=== PATIENT | female | born 1990 | race Caucasian/White ===

== ENCOUNTER 2020-09-24 15:18 | Emergency (ER) | payer BC, SELFPAY ==
[2020-09-24 15:27] VITALS: BP 123/68; PULSE 90; RESP 16; TEMP 36.5; O2SAT 98
--- NOTE | 2020-09-24 15:47 | ED.URI ---
HPI - URI/Sore Throat General Chief Complaint: Upper Respiratory Infection Stated Complaint: sore throat/runny nose/ear pain Time Seen by Provider: 09/24/20 15:29 Source: patient and RN notes reviewed Mode of arrival: ambulatory Limitations: no limitations History of Present Illness HPI Narrative: Patient presents today complaining of a sore throat upon waking up this morning with fatigue and runny nose. Denies fever, cough, congestion, ear pain. Currently rates her sore throat 7/10 and has been using cough drops without relief. States her stepchildren just got back from camp where they had similar symptoms for 5 days, but are now feeling better. MD elicited complaint: sore throat Related Data Home Medications Medication Instructions Recorded Confirmed No Home Medications 09/24/20 09/24/20 Allergies Allergy/AdvReac Type Severity Reaction Status Date / Time No Known Allergies Allergy NONE Unverified 09/24/20 15:29 Review of Systems Review of Systems: Narrative: CONSTITUTIONAL: Denies body aches, fever, chills, or sweats.+ Fatigue EYES: Denies visual changes, redness, or discharge. ENT: Denies congestion, or otalgia. + Rhinorrhea, sore throat CARDIOVASCULAR: Denies chest pain, palpitations, or edema. RESPIRATORY: Denies cough or dyspnea. GASTROINTESTINAL: Denies abdominal pain, nausea, vomiting, or diarrhea. GENITOURINARY: Denies dysuria or hematuria. SKIN: Denies rash, itching, or wounds. MUSCULOSKELETAL: Denies back pain, joint pain, or myalgia. NEUROLOGIC: Denies headache, numbness, tingling, or weakness. PSYCH: Denies depression or anxiety. PMFSH Comments At time of signature, I have reviewed and agree with nursing past medical, surgical, social and family history unless otherwise noted. Please see nursing chart for further information. There is no relevant family history pertinent to the presenting complaint Exam Narrative: Exam Narrative: GENERAL: Well-appearing, well-nourished, and in no acute distress. HEAD: Normocephalic, atraumatic. EYES: EOMI. No redness or drainage. Conjunctivae normal. ENT: Mucous membranes pink and moist. Nares clear. No rhinorrhea. TMs normal bilaterally. Throat mildly erythematous without edema or exudate. Uvula midline. NECK: Normal AROM. Supple. No lymphadenopathy. CHEST: No respiratory distress. Clear to auscultation. HEART: Regular rate and rhythm. No murmur appreciated. Normal peripheral pulses. EXTREMITIES: Normal range of motion. No edema. SKIN: Warm, dry, no rash. Capillary refill normal. Normal skin turgor. NEURO: No focal deficits. Alert and oriented x3. Gait steady. PSYCH: Normal affect. No signs of depression or anxiety. Course Vital Signs Vital signs: Vital Signs Temperature 97.7 F 09/24/20 15:27 Pulse Rate 90 09/24/20 15:27 Respiratory Rate 16 09/24/20 15:27 Blood Pressure 123/68 09/24/20 15:27 Pulse Oximetry 98 09/24/20 15:27 Temperature 97.7 F 09/24/20 15:27 Pulse Rate 90 09/24/20 15:27 Respiratory Rate 16 09/24/20 15:27 Blood Pressure 123/68 09/24/20 15:27 Pulse Oximetry 98 09/24/20 15:27 Reviewed. Pt has been instructed to follow up with her PCP regarding her elevated blood pressure today. MDM - URI/Sore Throat Differential Diagnosis Differential diagnosis: Likely upper respiratory infection, otitis media, sinusitis, viral infection, pharyngitis and other (Strep throat, tonsillitis) Lab Data Attestation: I reviewed the patient's lab results. Labs: Strep Screen Presumptive Negative *(Reference Range: Negative)* Critical Care Time Critical Care Time Critical Care Time: No Discharge Plan Discharge Clinical Impression: Acute viral pharyngitis Patient Disposition: Home, Self-Care Condition: Stable Instructions: Pharyngitis (ED) Additional Instructions: Your rapid strep swab was negative today at [facility]. You will be notified
== END 2020-09-24 15:54 | disposition home or self-care (01) ==
PROVIDERS: Emergency Provider Nurse Practitioner; PCP Family Medicine Sports Medicine
DX: J02.8 Acute pharyngitis due to other specified organisms (principal); R12 Heartburn
CPT/HCPCS: 87081; 87880; 99213; G0463

== ENCOUNTER 2020-11-16 18:44 | Emergency (ER) | payer BC, SELFPAY ==
--- NOTE | ~2020-11-16 | XR_ITS ---
EXAMINATION: XR chest 2V DATE: 11/16/2020 19:19 INDICATION: Left breast pain. TECHNIQUE: PA and lateral views of the chest were obtained. COMPARISON: Chest radiograph dated 03/11/2018 FINDINGS: The lungs remain clear with no focal airspace opacities, pulmonary edema, pleural effusion or pneumot horax. The cardiomediastinal silhouette is normal. Visualized bones and soft tissues are unremarkable . IMPRESSION: 1. No acute cardiopulmonary disease. Reviewed, dictated and finalized at location A.
[2020-11-16 18:53] VITALS: BP 125/86; PULSE 113; RESP 16; TEMP 36.7; O2SAT 98
--- NOTE | 2020-11-16 18:56 | ED.SKABFB ---
HPI - Skin/Abscess/Foreign Bdy General Chief complaint: Skin/Abscess/Foreign Body Stated complaint: lt breast pain/fatigue Time Seen by Provider: 11/16/20 18:56 Source: patient and RN notes reviewed History of Present Illness HPI narrative: Patient is a 30-year-old female who presents the urgent care with complaints of left breast pain and fatigue. Patient states she is trying to get however her test were negative. Patient states that she does not have normal periods and is following up with her PHARMACY SERVICES REPRESENTATIVE regarding her breast pain and menstrual cycles on Thursday. Patient states that she did call their office regarding her breast pain this morning and they told her to come on Thursday and if her pain got any worse that she can go to the emergency room. Patient denies of any rash of the breast. Denies of any history of breast issues or cystic breast tissue. Patient denies of any fevers. Patient states that she has been googling and thinks that she has inflammatory breast cancer . Patient is very anxious. Patient also reports of grabbing the back of her bed frame and stretching out her left shoulder approximately 50 times a day and does have some anterior muscle tenderness to the left shoulder/upper chest. Patient states that is chronic for her and nothing new. Patient denies of any use of [id number] medication for her current complaints. No acute distress noted. Patient aware of the plan of care. Some parts of this dictation were generated by voice recognition software and may contain typographical and/or grammatical inaccuracies. Related Data Home Medications Medication Instructions Recorded Confirmed No Home Medications 09/24/20 11/16/20 Allergies Allergy/AdvReac Type Severity Reaction Status Date / Time No Known Allergies Allergy NONE Unverified 11/16/20 18:50 Review of Systems Review of Systems: CONSTITUTIONAL: Denies fever, chills, or sweats. EYES: Denies visual changes, redness, or discharge. ENT: Denies rhinorrhea, congestion, sore throat, or otalgia. CARDIOVASCULAR: Denies chest pain, palpitations, or edema. RESPIRATORY: Denies cough or dyspnea. GASTROINTESTINAL: Denies abdominal pain, nausea, vomiting, or diarrhea. GENITOURINARY: Denies dysuria or hematuria. Reports of left breast pain radiating into the nipple SKIN: Denies rash or itching. MUSCULOSKELETAL: Denies back pain, joint pain, or myalgia. NEUROLOGIC: Denies headache, numbness, or weakness. All other systems reviewed are negative, except as documented in HPI. PMFSH Comments At the time of my signature, I reviewed and agree with the nursing past medical, surgical, social, and family history. There is no relevant family history pertinent to the patient complaint. Exam Narrative: GENERAL: This is a well-nourished, well-developed patient, in no apparent distress. HEAD: normocephalic, atraumatic. EYES: PERRL. Sclera clear/white. Vision is grossly intact. EARS: External ears normal NOSE: External nose normal with no obvious nasal discharge, nares without redness, no rhinorrhea. THROAT: Mucous membranes moist NECK: Neck supple CARDIOVASCULAR: Regular rate and rhythm without murmurs, gallops, or rubs. RESPIRATORY: Clear to auscultation. Breath sounds equal bilaterally. No wheezes, rales, or rhonchi. BREAST EXAM: Mild tenderness noted to the lateral aspect of the left breast at approximately 3 o'clock position, without notable rash/redness, swelling, changes in skin, nipple discharge/redness; no findings of firm or mobile nodules. SKIN: warm, intact with no suspicious lesions or rash, good texture and turgor. NEURO: awake, alert, and oriented to person, place and time. There were no obvious focal neurologic abnormalities. EXTREMITIES: No clubbing, cyanosis, or edema. Course Vital Signs Vital signs: Vital Signs Temperature 98.1 F 11/16/20 18:53 Pulse Rate 113 H 11/16/20 18:53 Respiratory Rate 16 11/16/20 18:53 Blood Pressure
== END 2020-11-16 19:52 | disposition home or self-care (01) ==
PROVIDERS: Emergency Provider Nurse Practitioner Family; PCP Family Medicine Sports Medicine
DX: N64.4 Mastodynia (principal)
CPT/HCPCS: 71046; 99213; G0463

== ENCOUNTER 2021-04-11 17:58 | Emergency (ER) | payer BC, SELFPAY ==
--- NOTE | ~2021-04-11 | XR_ITS ---
EXAMINATION: XR chest 2V EXAM DATE: 04/11/2021 18:20 INDICATION: Persistent Cough, COVID 01/2021. TECHNIQUE: Frontal and lateral projections of the chest obtained and reviewed. Comparison is made to prior examination from 11/16/2020. FINDINGS: The lungs are clear. There are no pleural effusions. The cardiomediastinal silhouette is within normal limits. There is no pneumothorax suspected. The bones and soft tissues are unremarkab le. IMPRESSION: No acute cardiopulmonary findings. Reviewed, dictated and finalized at location A. LLURGICAL ENGINEER
--- NOTE | 2021-04-11 18:05 | ED.URI ---
HPI - URI/Sore Throat General Chief Complaint: Upper Respiratory Infection Stated Complaint: Cough Time Seen by Provider: 04/11/21 18:05 Source: patient and RN notes reviewed History of Present Illness HPI Narrative: Patient is a 31-year-old female presents the urgent care with complaints of COVID cough and October. Patient states that she has gotten better, then gotten worse. Patient states that her doctor is out of the office due to COVID and his spouse passing away and the nurse practitioner has been unable to see her. Patient was ordered an outpatient order from her PCP but decided she wanted to check into the urgent care for peace of mind . Patient denies any recent fever, nausea or vomiting. Patient started steroids today from her PCP. States that no one else in the home has been ill. Patient did not get COVID vaccinated. Currently denies of any shortness of breath or chest pain. No other acute complaints. No acute distress noted. Patient under the plan of care. Some parts of this dictation were generated by voice recognition software and may contain typographical and/or grammatical inaccuracies. Related Data Home Medications Medication Instructions Recorded Confirmed amitriptyline 10 mg tablet 10 mg PO QHS PRN 03/20/21 03/20/21 esomeprazole magnesium 20 mg 20 mg PO DAILY 03/20/21 03/20/21 capsule,delayed release lisdexamfetamine 30 mg capsule 30 mg PO DAILY PRN 03/20/21 03/20/21 Allergies Allergy/AdvReac Type Severity Reaction Status Date / Time No Known Allergies Allergy NONE Verified 04/11/21 18:04 Review of Systems Review of Systems: CONSTITUTIONAL: Denies fever, chills, or sweats. EYES: Denies visual changes, redness, or discharge. ENT: Denies rhinorrhea, congestion, sore throat, or otalgia. CARDIOVASCULAR: Denies chest pain, palpitations, or edema. RESPIRATORY: Reports of chronic post COVID cough without dyspnea GASTROINTESTINAL: Denies abdominal pain, nausea, vomiting, or diarrhea. GENITOURINARY: Denies dysuria or hematuria. SKIN: Denies rash or itching. MUSCULOSKELETAL: Denies back pain, joint pain, or myalgia. NEUROLOGIC: Denies headache, numbness, or weakness. All other systems reviewed are negative, except as documented in HPI. [facility] Past Medical History Medical History (Updated 04/11/21 @ 18:36 by JUAN ANTONIO Musa) Allergies Anemia Anxiety Cervicalgia Cough Encounter to establish care GERD (gastroesophageal reflux disease) IBS (irritable bowel syndrome) Lumbago Morbid obesity with BMI of 40.0-44.9, adult Nasal congestion Screening for diabetes mellitus Screening for endocrine disorder Family History Family History (Updated 03/20/21 @ 13:33 by Kayleigh Gutierrez MA) Father Alcoholism Cancer of kidney Hypertension Depression Social History Social History Smoking status: Former smoker Alcohol intake: never Substance use: never Substance use type: does not use Comments At the time of my signature, I reviewed and agree with the nursing past medical, surgical, social, and family history. There is no relevant family history pertinent to the patient complaint. Exam Narrative: GENERAL: This is a well-nourished, well-developed patient, in no apparent distress. HEAD: normocephalic, atraumatic. EYES: PERRL. Sclera clear/white. Vision is grossly intact. EARS: External ears normal, auditory canals clear and without drainage, TMs normal without perforation. Hearing grossly intact. NOSE: External nose normal with no obvious nasal discharge, nares without redness, no rhinorrhea. THROAT: Mucous membranes moist, posterior pharynx clear. NECK: Neck supple, non-tender without lymphadenopathy, masses or thyromegaly. CARDIOVASCULAR: Regular rate and rhythm without murmurs, gallops, or rubs. RESPIRATORY: Clear to auscultation. Slightly diminished left lower SKIN: warm, intact with no suspicious lesions or rash, good textur
[2021-04-11 18:07] VITALS: BP 137/79; PULSE 113; RESP 20; TEMP 36.2; O2SAT 98
== END 2021-04-11 18:40 | disposition home or self-care (01) ==
PROVIDERS: Emergency Provider Nurse Practitioner Family; PCP Nurse Practitioner Family
DX: R05.9 Cough, unspecified (principal); U09.9 Post COVID-19 condition, unspecified; K21.9 Gastro-esophageal reflux disease without esophagitis; E66.01 Morbid (severe) obesity due to excess calories; Z68.41 Body mass index [BMI] 40.0-44.9, adult; Z87.891 Personal history of nicotine dependence; F41.9 Anxiety disorder, unspecified
CPT/HCPCS: 71046; 99213; G0463

== ENCOUNTER 2021-07-03 21:18 | Emergency (ER) | payer BC, SELFPAY ==
--- NOTE | ~2021-07-03 | XR_ITS ---
EXAMINATION: XR tibia fibula RT 2V DATE: 07/03/2021 21:52 INDICATION: Right ankle pain. TECHNIQUE: 2 views of right tibia and fibula on 3 radiographs were obtained. COMPARISON: None. FINDINGS: Bone alignment is normal. No fracture. Joint spaces are well maintained. There is ankle sof t tissue swelling. IMPRESSION: 1. No fracture. Reviewed, dictated and finalized at location A. IMPRESSION: 1. No fracture.
--- NOTE | ~2021-07-03 | XR_ITS ---
EXAMINATION: XR ankle RT min 3V DATE: 07/03/2021 21:52 INDICATION: Right ankle pain. Fall on stairs. TECHNIQUE: 4 views of right ankle were obtained. COMPARISON: None. FINDINGS: Bone alignment is normal. No fracture. Joint spaces are well maintained. There is ankle sof t tissue swelling. IMPRESSION: 1. No fracture. Reviewed, dictated and finalized at location A. IMPRESSION: 1. No fracture.
[2021-07-03 21:25] VITALS: BP 145/81; PULSE 115; RESP 18; TEMP 36.9; O2SAT 98
--- NOTE | 2021-07-03 21:34 | ED.LOWEXIN ---
HPI - Extremity Injury (Lower) General Chief Complaint: Extremity Injury, Lower Stated Complaint: right ankle Time Seen by Provider: 07/03/21 21:26 Source: patient Mode of arrival: wheelchair Limitations: no limitations History of Present Illness HPI Narrative: The patient is a 31-year-old female presenting to the emergency department for evaluation of a fall with resulting right ankle pain. Patient states she slipped on a blanket on her steps, causing her ankle to bend in her to fall down 5 steps. Patient landed on her bottom. Denies any head trauma, loss of conscious. Denies any significant lower back pain or hip pain. Patient reports she has been able to move her toes, denies any numbness or weakness. Reports pain on the lateral aspect of her right ankle. Reports small abrasion overlying the ankle. Denies any significant deformity, states she had earlier swelling that has now much improved. Patient has not taking any medication for this. Denies history of ankle injury in the past. Related Data Home Medications Medication Instructions Recorded Confirmed amitriptyline 10 mg tablet 10 mg PO QHS PRN 03/20/21 04/23/21 esomeprazole magnesium 20 mg 20 mg PO DAILY 03/20/21 04/23/21 capsule,delayed release lisdexamfetamine 30 mg capsule 30 mg PO DAILY 03/20/21 04/23/21 metformin mg 07/03/21 spironolactone 07/03/21 Allergies Allergy/AdvReac Type Severity Reaction Status Date / Time No Known Allergies Allergy NONE Verified 07/03/21 21:32 Review of Systems Review of Systems: CONSTITUTIONAL: Denies fever CARDIOVASCULAR: Denies chest pain RESPIRATORY: Denies cough or dyspnea. GASTROINTESTINAL: Denies abdominal pain SKIN: Denies rash, reports small abrasion overlying anterior right ankle MUSCULOSKELETAL: Denies back pain, denies hip pain, reports right ankle pain, denies any significant bruising, denies numbness or weakness NEUROLOGIC: Denies headache PMFSH Past Medical History Medical History Allergies Anemia Anxiety Cervicalgia Cough Encounter to establish care GERD (gastroesophageal reflux disease) IBS (irritable bowel syndrome) Lumbago Morbid obesity with BMI of 40.0-44.9, adult Nasal congestion Screening for diabetes mellitus Screening for endocrine disorder Family History Family History Father Alcoholism Cancer of kidney Hypertension Depression Diabetes mellitus Mother Thyroid disorder Social History Social History Smoking status: Former smoker Alcohol intake: never Substance use: never Substance use type: does not use Exam Narrative: GENERAL: Awake, alert, conversant HEAD: Normocephalic, atraumatic. EYES: PERRLA and EOMI. ENT: Nares clear, no rhinorrhea or epistaxis. Mucous membranes moist. NECK: Supple. CHEST: No respiratory distress, breathing even and non labored HEART: Regular rate, sinus rhythm ABDOMEN:Non distended, non tender EXTREMITIES: No deformity to the right ankle. Tenderness to the lateral aspect of the right ankle. No medial malleolar tenderness. DP pulses 2+. Intact distal perfusion, capillary refill less than 3 seconds. Patient with limited flexion, extension at the right ankle secondary to pain. Toe movement is normal. SKIN: Warm, dry, no rash. NEURO:No focal deficits. Alert and oriented x3 Course Vital Signs Vital signs: Vital Signs Temperature 36.9 C 07/03/21 21:25 Pulse Rate 115 H 07/03/21 21:25 Respiratory Rate 18 07/03/21 21:25 Blood Pressure 145/81 H 07/03/21 21:25 Pulse Oximetry 98 07/03/21 21:25 Temperature 36.9 C 07/03/21 21:25 Pulse Rate 115 H 07/03/21 21:25 Respiratory Rate 18 07/03/21 21:25 Blood Pressure 145/81 H 07/03/21 21:25 Pulse Oximetry 98 07/03/21 21:25 MDM - Extremity Injury (Lower) MDM Narrative Medical decision making na
[2021-07-03] MEDS: oxyCODONE/ACETAMINOPHEN (*CRX) 5-325 MG TABLET 1 TABLET PO (21:39)
== END 2021-07-03 22:20 | disposition home or self-care (01) ==
PROVIDERS: Emergency Provider Emergency Medicine; PCP Nurse Practitioner Family
DX: S93.401A Sprain of unspecified ligament of right ankle, initial encounter (principal); D64.9 Anemia, unspecified; F41.9 Anxiety disorder, unspecified; K21.9 Gastro-esophageal reflux disease without esophagitis; W10.9XXA Fall (on) (from) unspecified stairs and steps, initial encounter
CPT/HCPCS: 73590; 73610; 99284; A9270

== ENCOUNTER 2022-06-08 15:46 | Emergency (ER) | payer BC, SELFPAY ==
--- NOTE | ~2022-06-08 | XR_ITS ---
EXAMINATION: XR chest 2V DATE: 06/08/2022 16:20 INDICATION: Cough TECHNIQUE: PA and lateral views of the chest are obtained. COMPARISON: 04/11/2021 FINDINGS: The lungs are free of acute opacities. No pleural effusion or pneumothorax. The cardiomedia stinal silhouette is normal. The visualized bones and soft tissues are unremarkable. IMPRESSION: 1. No acute cardiopulmonary abnormality. Reviewed, dictated and finalized at location F. MANAGER
--- NOTE | 2022-06-08 15:51 | ED.URI ---
HPI - URI/Sore Throat General Chief Complaint: Upper Respiratory Infection Stated Complaint: cough,chest/back pain Time Seen by Provider: 06/08/22 16:10 Source: patient and RN notes reviewed Mode of arrival: ambulatory Limitations: no limitations History of Present Illness HPI Narrative: 32-year-old female presents concern for 6 day history of nasal congestion, rhinorrhea, cough, chest congestion, back pain with coughing. She denies any known sick contacts. She reports history of adverse reaction to albuterol when she passed out. She reports she has been taking Tylenol and ibuprofen along with vitamins at home for her symptoms. MD elicited complaint: cough Related Data Home Medications Medication Instructions Recorded Confirmed L norgest/E estradiol-E estrad 1 tablet PO DAILY 11/11/21 06/08/22 0.15 mg-30 mcg (84)/10 mcg(7) tabs,3mos (Seasonique) montelukast 10 mg tablet 10 mg PO DAILY 06/08/22 06/08/22 Allergies Allergy/AdvReac Type Severity Reaction Status Date / Time albuterol AdvReac Palpitation Verified 06/08/22 16:14 s Review of Systems Review of Systems: CONSTITUTIONAL: Denies malaise, chills, sweats, or fever. EYES: Denies visual changes, redness, or discharge. ENT: Reports rhinorrhea, congestion, sore throat. Denies sinus pain, otalgia CARDIOVASCULAR: Denies chest pain, palpitations, or edema. RESPIRATORY: Reports cough, chest congestion, chest and back pain with coughing. Denies dyspnea. GASTROINTESTINAL: Denies abdominal pain, nausea, vomiting, diarrhea SKIN: Denies rash or itching. MUSCULOSKELETAL: Denies myalgia. NEUROLOGIC: Denies headache. All systems reviewed & are unremarkable except as noted in HPI and below PMFSH Past Medical History Medical History (Updated 06/08/22 @ 16:33 by Lorrie Lomeli NP) Acute non-recurrent maxillary sinusitis ADHD (attention deficit hyperactivity disorder), inattentive type Allergies Allergies Anemia Anxiety Bloating Cervicalgia Cough Encounter to establish care GERD (gastroesophageal reflux disease) Hives IBS (irritable bowel syndrome) Lumbago Morbid obesity with BMI of 40.0-44.9, adult Nasal congestion Screening for diabetes mellitus Screening for endocrine disorder Family History Family History Father Alcoholism Cancer of kidney Hypertension Depression Diabetes mellitus Mother Thyroid disorder Social History Social History Smoking status: Former smoker Alcohol intake: never Substance use: never Substance use type: does not use Comments At time of signature, agree with nursing past medical, surgical, social and family history. There is no relevant family history pertinent to the presenting complaint Exam Narrative: GENERAL: Well-appearing, well-nourished, and in no acute distress. HEAD: Normocephalic EYES: PERRLA, conjunctivae clear ENT: Nares clear, turbinates edematous and erythematous, clear discharge. Mucous membranes moist. TM pearly quiros with dull light reflex bilaterally; no tragal tenderness. Oropharynx not erythematous without lesions. Tonsils not enlarged and without exudate, no drooling, no hoarseness, no trismus, uvula midline. NECK: Supple. No lymphadenopathy CHEST: Clear to auscultation, breath sounds equal. No wheezing, rhonchi, rales, or stridor. No respiratory distress, speaks in full sentences. HEART: Regular rate and rhythm. No murmur heard. SKIN: Warm, dry, no rash. NEURO: Alert and oriented x3. PSYCH: Normal mood and affect Course Course Emergency Course: Patient is aware of diagnosis, understands and agrees to treatment plan. Anticipatory guidance given. Patient agrees to follow-up as directed and is aware of reasons to seek care at the emergency department. Portions of this record may have been created with voice recognition software Level of Care: Express Care Visit Vital Signs V
[2022-06-08 15:57] VITALS: BP 121/78; PULSE 100; RESP 16; TEMP 36.6; O2SAT 98
== END 2022-06-08 16:46 | disposition home or self-care (01) ==
PROVIDERS: Emergency Provider Nurse Practitioner; PCP Family Medicine
DX: J06.9 Acute upper respiratory infection, unspecified (principal)
CPT/HCPCS: 71046; 99213; G0463

== ENCOUNTER → 2023-01-15 08:59 | Outpatient (CLI) | payer OTHER, SELFPAY ==
--- NOTE | ~2023-01-15 | MMUS_ITS ---
EXAMINATION: MM diagnostic kajal BI w tanesha, US breast LT limited HISTORY: Soft mobile mass felt cyclically before menstrual cycles, left breast, 6-7:00 area approxima tely TECHNIQUE: ML, MLO and CC 3-D tomosynthesis images of both breasts were performed and synthetic 2-D i mages were generated. CAD analysis was submitted and interpreted. High resolution targeted left breas t ultrasound at area of clinical complaint was performed. COMPARISON: None BREAST PARENCHYMAL COMPOSITION: There are scattered areas of fibroglandular density. FINDINGS: MAMMOGRAPHIC FINDINGS: No suspicious mass or architectural distortion, malignant calcification, skin thickening or retractio n is detected. ULTRASOUND: No suspicious mass or shadowing or other significant sonographic abnormality is detected 6:00 or 7:00 . IMPRESSION: 1. No evidence of malignancy 2. Routine annual mammographic screening beginning at age 40 is recommended unless there are symptoms or physical findings prior to that time BI-RADS Category 1: Negative Reviewed, dictated and finalized at location A. IMPRESSION: 1. No evidence of malignancy 2. Routine annual mammographic screening beginning at age 40 is recommended unl ess there are symptoms or physical findings prior to that time BI-RADS Category 1: Negative
--- NOTE | ~2023-01-15 | US_ITS ---
EXAMINATION: US transvaginal DATE: 01/15/2023 09:59 INDICATION: Abnormal uterine bleeding, polycystic ovarian syndrome TECHNIQUE: Multiple endovaginal sonographic images of the pelvis were obtained. COMPARISON: None. FINDINGS: The uterus measures 8.8 x 4.1 x 5.7 cm. The endometrial complex measures 12 mm. The right o vary measures 1.8 x 2.5 x 1.8 cm. The left ovary measures 2.7 x 2.7 x 2.7 cm. There is a 1.7 cm proba ble cyst in the left ovary. There is normal vascular flow in the ovaries. There is no free fluid in t he pelvis. IMPRESSION: 1. No sonographic correlate for the patient's symptoms. Reviewed, dictated and finalized at location L.
== END ==
PROVIDERS: PCP Nurse Practitioner; Visit Provider Nurse Practitioner
DX: N64.59 Other signs and symptoms in breast (principal); N63.13 Unspecified lump in the right breast, lower outer quadrant; N93.8 Other specified abnormal uterine and vaginal bleeding
CPT/HCPCS: 76642; 76830; 77062; 77066; G0279

== ENCOUNTER → 2023-04-28 16:11 | Outpatient (CLI) | payer OTHER, SELFPAY ==
--- NOTE | ~2023-04-28 | XR_ITS ---
EXAMINATION: XR chest 2V 04/28/2023 16:23 INDICATION: Cough PROCEDURE: 2 view chest COMPARISON: 06/08/2022 FINDINGS: The lungs are clear. The cardiomediastinal silhouette is within normal limits. There are no pleural effusions. There is no pneumothorax suspected. IMPRESSION: 1: NO ACUTE CARDIOPULMONARY DISEASE. Reviewed, dictated and finalized at location L. [facility]
== END ==
PROVIDERS: PCP Physician Assistant Medical; Visit Provider Physician Assistant Medical
DX: R05.9 Cough, unspecified (principal)
CPT/HCPCS: 71046

== ENCOUNTER 2024-11-07 10:46 | Outpatient (CLI) | payer OTHER, SELFPAY ==
--- NOTE | ~2024-11-07 | MMUS_ITS ---
EXAMINATION: MM diagnostic kajal BI w tanesha, US breast BI limited INDICATION: 34-year old female; bilateral nipple after sexual intercourse 3 weeks ago. Katerin ent was treated for mastitis with antibiotic by caregiver which she took for about a week. COMPARISON: Baseline. TECHNIQUE: Digital breast tomosynthesis True lateral and CC and MLO views of the BILATERAL breast wer e obtained with computer-aided detection to assist in interpretation of the study. Bilateral focused breast ultrasound was completed. FINDINGS: There are scattered areas of fibroglandular density. There are no suspicious masses, calcifications, architectural distortion or any other abnormality in either breast. BILATERAL BREAST ULTRASOUND FINDINGS: Targeted evaluation of the subareolar region of both breasts was completed. There are normal appearing prominent ducts seen. No suspicious solid or cystic mass. IMPRESSION: No mammographic or sonographic evidence of breast malignancy. RECOMMENDATION: Clinical management of patient's symptoms is advised. BI-RADS 1, NEGATIVE Reviewed, dictated and finalized at location B. IMPRESSION: No mammographic or sonographic evidence of breast malignancy. RECOMMENDATION: Clinical management of patient's symptoms is advised. BI-RADS 1, NEGATIVE
--- OUTSIDE RECORDS SUMMARY | 2024-11-07 11:15 | XMS_ITS | Patient Health Record ---
Author Organization [facility] Address [address] [facility] 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 Acti ve Social History Tobacco Use: Social History Observation Description Date Details (start date - stop date) Current Smoker NA - NA Tobacco Use/Smoking Question Answer Notes Are you a current smoker Problems Problem Type SNOMED Code ICD Code Onset Dates Problem Status W/U Status Risk Notes Problem [id number] GERD (gastroesophagea l reflux disease) (K21.9) Active confirmed Problem [id number] Symptoms consistent with irritable bowel syndrome (K58.9) Active confirmed Plan Of Treatment Pending Test Test Name Order Date Upper Endoscopy 06/29/2020 TISSUE TRANSGLUTAMINASE AB, IGA 06/30/19 21 TSH 06/29/2020 GIARDIA AG, EIA, STOOL 06/29/2020 LACTOFERRIN, QN, STOOL 06/29/2020 Immunoglobulin A, Qn, Serum 06/29/2020 CRP 06/29/2020 Insurance Providers Payer Name Payer Address Payer Phone Subscriber Number Group Number Insured Name Patient Relationship to Insured Coverage Start Date Coverage End Date [employer] Access [employer] PPO E2 [address] [place] [phone] [id number] Cedrick Kirkpatrick Spouse - patient is the spouse of the insured Medical (General) History Medical History History ICD Code GERD Anemia Peptic Ulcer Disease ADHD Depression Surgical History Surgery Date(Month/Year) Tonsillectomy
--- OUTSIDE RECORDS SUMMARY | 2024-11-07 11:15 | XMS_ITS | Encounter Summary ---
Author Organization [facility] Healthcare Address [address] [place] [address] Care Team Providers Care Glass Technologist Name Role Phone Kathi Garcia MD Primary Care Provider [phone] Reason for Visit * Reason Comments Diarrhea Is on an antibiotic and is having excessive diarrhea, it is burning and she is seeing blood, Diarrhea been doing on for around 3 weeks but got worse with the antibiotic Encounter Details Date Type Department Care Team (Late st Contact Info) Description 11/06/2024 6:30 PM CDT Office Visit [facility] at [address] [phone] Cindy Weeks, NEUROSURGICAL NURSE PRACTITIONER [address] [place] [address] [address] [id number] Diarrhea, unspecified type (Primary Dx); External hemorrhoid; POTS (postural orthostatic tachycardia syndrome) Social History Tobacco Use Types Packs/Day Years Used Date Smoking Tobacco: Never Assessed Comments Unknown Sex and Gender Information Value Date Recorded Sex Assigned at Not on file Legal Sex Female 1:30 PM CDT Gender Identity Not on file Sexual Orientation Not on file documented as of this encounter Last Filed Vital Signs Vital Sign Reading Time Taken Comments Blood Pressure 96/64 11/06/2024 6:38 PM CDT Pulse 123 11/06/2024 6:38 PM CDT Temperature 36.7 C (98 F) 11/06/2024 6:38 PM CDT Respiratory Rate 18 11/06/2024 6:38 PM CDT Oxygen Saturation 98% 11/06/2024 6:38 PM CDT Inhaled Oxygen Concentration - - Weight 132.3 kg (291 lb 11.2 oz) 11/06/2024 6:38 PM CDT Height 172.7 cm (5' 7.99) 11/06/2024 6:38 PM CD T Body Mass Index 44.36 11/06/2024 6:38 PM CDT documented in this encounter Ordered Prescriptions Prescription Sig Dispense Quantity Refills Last Filled Start Date End Date hydrocortisone (ANUSOL-HC) 25 mg suppositoryIndica tions:Hemorrhoids Insert 1 suppository (25 mg total) into the rectum 2 (two) times a day as needed for hemorrhoids 10 suppository documented in this encounter Progress Notes * Cindy Weeks, NEUROSURGICAL NURSE PRACTITIONER - 11/06/2024 6:30 PM CDT Images from the original note were not included. Subjective/Objective Patient ID: Brandy Kirkpatrick is a 34 y.o. female. This patient has verbally consented to recording this visit in order to utilize AI technology in generating this note. Chief Complaint Diarrhea (Is on an antibiotic and is having excessive diarrhea, it is burning and she is seeing blood, /Diarrhea been doing on for around 3 weeks but got worse with the antibiotic ) History of Present Illness Brandy Kirkpatrick is a 34 year old female with IBS and GERD who presents with diarrhea and rectal bleeding. She is accompanied by her . She has experienced digestive issues for approximately seven years, initially presenting as heartburn. She was diagnosed with IBS and has been treated for SIBO, although she was not tested for it. Severe heartburn leads to projectile vomiting if she does not take heartburn medication daily. Diarrhea began about three weeks ago after starting Augmentin for a sinus infection. The diarrhea is described as 'out of control', with episodes of watery, acidic, and burning stools. She started taking a women's health probiotic, Culturelle, three days ago, which has led to some improvement, with stools becoming softer and more defined. Three days ago, she noticed blood during bowel movements, described as bright red blood on toilet paper and in the toilet. The bleeding is not constant and seems to occur with larger bowel movements.She notes a bump near the rectal area, which she believes might be a hemorrhoid. She has a history of medical anxiety, which exacerbates her gastrointestinal symptoms during stressful events, such as starting a new job or experiencing a in the family. She also reports a history of POTS, which has caused her to pass out in the past. She is currently taking heartburn medication daily and has recently started a probiotic. She is mindful of her hydration due to the diarrhea and is attempting to maintain a bland diet to manage her symptoms. Review of Systems All other systems reviewed and are negative. Physical Exam Physical Exam Vitals reviewed. Exam conducted with a puppy walker present (TRACE Mane). Constitutional: General: She is not in acute distress. Appearance: Normal appearance. She is not ill-appearing. Comments: Patient very anxious during exam HENT: Head: Normocephalic. Mouth/Throat: Lips: [place]. Cardiovascular: Rate and Rhythm: Tachycardia present. Pulmonary: Effort: Pulmonary effort is normal. Breath sounds: Normal breath sounds. Abdominal: General: Bowel sounds are normal. Palpations: Abdomen is soft. Tenderness: There is no abdominal tenderness. Genitourinary: Comments: External hemorrhoid seen on exam Skin: General: Skin is warm. Neurological: Mental Status: She is alert and oriented to person, place, and time. Psychiatric: Mood and Affect: Mood normal. Vitals: 11/06/24 1838 BP: 96/64 Pulse: 123 Resp: 18 Temp: 36.7 ??C (98 ??F) SpO2: 98% Weight: 132.3 kg (291 lb 11.2 oz) Height: 172.7 cm (5' 7.99) No results found. No past medical history on file. Current Outpatient Medications: albuterol HFA (PROVENTIL HFA,VENTOLIN HFA,PROAIR HFA) 90 mcg/actuation inhaler, Inhale 2 puffs every 4 (four) hours as needed, Disp: , Rfl: amitriptyline (ELAVIL) 10 mg tablet, Take 1 tablet (10 mg total) by mouth nightly at bedtime, Disp:, Rfl: amoxicillin-clavulanate (AUGMENTIN) 875-125 mg per tablet, Take 1 tablet by mouth 2 (two) times a day for 10 days, Disp: 20 tablet, Rfl: 0 metFORMIN XR (GLUCOPHAGE XR) 500 mg 24 hr tablet, Take 1 tablet (500 mg total) by mouth daily, Disp: , Rfl: omeprazole (PriLOSEC) 20 mg capsule, Take 1 capsule (20 mg total) by mouth daily, Disp: , Rfl: spironolactone (ALDACTONE) 100 mg tablet, Take 1 tablet (100 mg total) by mouth daily, Disp: , Rfl: hydrocortisone (ANUSOL-HC) 25 mg suppository, Insert 1 suppository (25 mg total) into the rectum 2 (two) times a day as needed for hemorrhoids, Disp: 10 suppository, Rfl: 0 ofloxacin (OCUFLOX) 0.3 % ophthalmic solution, Administer 1 drop into the left eye 4 (four) times aday (Patient not taking: Reported on 11/06/2024), Disp: 5 mL, Rfl: 0 psyllium husk (KONSYL) 6 gram packet, Take 1 packet (6 g total) by mouth (Patient not taking: Reported on 11/06/2024), Disp: , Rfl: Allergies Allergen Reactions Z Pack [Azithromycin] Stomach upset Bloating Social History Tobacco Use Smoking status: None Smokeless tobacco: None Substance and Sexual Activity Drug use: None Sexual activity: None Alcohol Use: Not At Risk (12/15/2018) Received from [facility] Frequency of Alcohol Consumption: Never Average Number of Drinks: Not on file Frequency of Binge Drinking: Not on file History reviewed. No pertinent surgical history. Assessment/Plan 1. Diarrhea, unspecified type (Primary) 2. External hemorrhoid - hydrocortisone (ANUSOL-HC) 25 mg suppository; Insert 1 suppository (25 mg total) into the rectum 2 (two) times a day as needed for hemorrhoids Dispense: 10 suppository; Refill: 0 3. POTS (postural orthostatic tachycardia syndrome) Results No results found for this or any previous visit (from the past 4 hours). Assessment & Plan Diarrhea following antibiotic use with rectal bleeding likely due to hemorrhoid Diarrhea post-Augmentin with rectal bleeding likely from hemorrhoids. Rectal exam showed hemorrhoid. Culturelle probiotic improved stool consistency. C. difficile considered but testing unavailable. - Encourage continued Culturelle probiotic use. - Advise bland diet, avoid spicy and fried foods. - Ensure adequate hydration. - Discuss stool sample testing for bacterial infections with primary care physician. - Prescription suppository to help with hemorrhoid - Patient has an established GI that she is going to schedule follow up appointment with, patient mentions that she has an appointment next month. Postural orthostatic tachycardia syndrome (POTS) POTS with fainting episodes, especially during stress. - Advise on managing POTS symptoms: stay hydrated, avoid rapid position changes. Education Disposition Treatment plan including expectations, follow up, and return precautions discussed with patient/parent, verbalizes understanding. Medication dosage, use, and potential adverse reactions discussed with patient/parent. Advised to follow up with PCP if symptoms do not resolve as expected or sooner if condition worsens. Signs/symptoms warranting ER evaluation reviewed. Patient and/or guardian was given an opportunity to ask questions, questions answered. Cindy Weeks NP This office note has been partially dictated using [employer] software, and as a result portions of the record may have been created with this software. Occasional wrong-word or '[id number]' substitutions may have occurred due to the inherent limitations of voice recognition software. Read the chartcarefully and recognize, using context, where substitutions have occurred. documented in this encounter Plan of Treatment Not on file documented as of this encounter Visit Diagnoses Diagnosis Diarrhea, unspecified type- Primary External hemorrhoid External hemorrhoids without mention of complication POTS (postural orthostatic tachycardia syndrome) Unspecified tachycardia documented in this encounter Care Teams Glass Technologist Relationship Specialty Start Date End Date Kathi Garcia MD [address] [place] [address] [address]UI [address] [address] PCP - General Family Medicine 11/06/24 documented as of this encounter
--- OUTSIDE RECORDS SUMMARY | 2024-11-07 11:15 | XMS_ITS | Referral Summary ---
Author Organization [facility] Address [address] [place] [address] Care Team Providers Care Signalman Name Role Phone Kathi Garcia MD Primary Care Provider [phone] Encounters Date Type Department Care Team Description 11/06/2024 6:30 PM CDT Office Visit [facility] Care at [address] [phone] Cindy Weeks NP Diarrhea, unspecified type (Primary Dx); External hemorrhoid; POTS (postural orthostatic tachycardia syndrome) 10/30/2024 1:15 PM CDT Telemedicine [facility] Care [address] [place] [phone] Nohemi Hickey NP Acute pansinusitis, recurrence not specified (Primary Dx) 10/30/2024 Patient Self-Triage LT[facility] [address] [place] [address] Ailynt, Generic Provider 09/19/2024 11:45 AM CDT Telemedicine [facility] Care [address] [place] [phone] Nohemi Hickey NP Acute cystitis without hematuria (Primary Dx) 09/19/2024 Patient Self-Triage [facility] [address] [place] [address] Mychart, Generic Provider from Last 3 Months Allergies Active Allergy Reactions Criticality Noted Date Comments Azithromycin Stomach upset Low 11/06/2024 Bloating Medications ofloxacin (OCUFLOX) 0.3 % ophthalmic solution Administer 1 drop into the left eye 4 (four) times a day 5 mL 4 Active Additional Information Patient not taking.Reported on 11/06/2024 metFORMIN XR (GLUCOPHAGE XR) 500 mg 24 hr tablet Take 1 tablet (500 mg total) by mouth daily 4 Active amitriptyline (ELAVIL) 10 mg tablet Take 1 tablet (10 mg total) by mouth nightly at bedtime 4 Active spironolactone (ALDACTONE) 100 mg tablet Take 1 tablet (100 mg total) by mouth daily 4 Active albuterol HFA (PROVENTIL HFA,VENTOLIN HFA,PROAIR HFA) 90 mcg/actuation inhaler Inhale 2 puffs every 4 (four) hours as needed 4 Active omeprazole (PriLOSEC) 20 mg capsule Take 1 capsule (20 mg total) by mouth daily Active psyllium husk (KONSYL) 6 gram packet Take 1 packet (6 g total) by mouth Active amoxicillin-cl avulanate (AUGMENTIN) 875-125 mg per tablet Take 1 tablet by mouth 2 (two) times a day for 10 days 20 tablet 5 025 Active hydrocortisone (ANUSOL-HC) 25 mg suppositoryInd ications:Hemor rhoids Insert 1 suppository (25 mg total) into the rectum 2 (two) times a day as needed for hemorrhoids 10 suppository 5 Active Active Problems Problem Noted Date Diagnosed Date Sinusitis, acute 10/30/2024 Assessment & Plan (10/30/2024 1:13 PM CDT): Due to length of illness we will treat with antibiotic, please complete the whole course of antibiotics-no leftovers. Prescription for antibiotics sent. Reviewed potential benefits and potential side effects of augmentin. Aware to complete full course of antibiotic. To continue otc medications. Discussed nasal saline rinses/neti pots. Discussed need to increase fluid intake. May use 1 teaspoon honey every 4 hours as needed for cough, encourage use of hot tea or hot water with honey. May use vicks vapo rub on chest and bottom of feet before bed. Cool mist humidifier in bedroom. Lots of water, rest and handwashing, no sharing cups or utensils. If symptoms worsen including but not limited to shortness of breath, chest pain and/or increasing pain please notify office or present to Emergency Department. Acute cystitis without hematuria 09/19/2024 Assessment & Plan (09/19/2024 11:39 AM CDT): Due to limitations with virtual visit physical assessment and labs deferred at this time. Pt was advised increase fluids, genital hygiene, and frequent voiding to assist with clearance of infection. Prescribed macrobid She was advised of side effects, dosage, and use of antibiotics. Will send prescription for macrobid to patient pharmacy. Instructed to patient on risk and benefits of medication. All red flags reviewed. Patient should follow up with PCP or report to ED for any worsening symptoms. Patient verbalized understanding and agreed to plan of care at this time. GERD (gastroesophageal reflux disease) Symptoms consistent with irritable bowel syndrom e 09/03/2023 Acute bacterial conjunctivitis of left eye 08/29 Assessment & Plan (08/30/2023 7:08 PM CDT): Ofloxacin eye drops.1 drop 4 x day. Wash hands frequently. Social History Tobacco Use Types Packs/Day Years Used Date Smoking Tobacco: Never Assessed Comments Unknown Sex and Gender Information Value Date Recorded Sex Assigned at Not on file Legal Sex Female 1:30 PM CDT Gender Identity Not on file Sexual Orientation Not on file Last Filed Vital Signs Vital Sign Reading [...] Mass Index 44.36 11/06/2024 6:38 PM CDT Plan of Treatment Not on file Insurance Care Teams Signalman Relationship Specialty Start Date End Date Kathi Garcia MD [address] [place] [address] PCP - General Family Medicine 11/06/24
--- OUTSIDE RECORDS SUMMARY | 2024-11-07 11:15 | XMS_ITS | Clinical Summary ---
Author Organization [facility] Address [address] [place] [address] Care Team Providers Care Purification Operator Helper Name Role Phone Justin Kohli MD Primary Care Provider [phone] Source Comments [facility],non-owned Affiliates and Associated Physician Practices is amultiple site organization consisting of ambulatory clinics and hospital sitesin [place], [place], [place] and [place]. This disclosure is being madepursuant to the Care Everywhere program and may not contain all information available regarding this patient. Last updated 17.[facility] Allergies Active Allergy Reactions Criticality Noted Date Comments Azithromycin Vomiting 03/14/2024 Medications * Be aware that medications may not be up to date on this document. Alwaysverify current medications with the patient. fluticasone propionate (Flonase) 50 MCG/ACT nasal spray [place] 2 (two) sprays into each nostril once daily 16 g 06/04/2024 Active Active Problems No known active problems Social History Tobacco Use Types Packs/Day Years Used Date Smoking Tobacco: Never Smokeless Tobacco: Never PHQ-2 Answer Date Recorded Patient Health Questionnaire-2 Score 0 06/07/2024 Comments No Sex and Gender Information Value Date Recorded Sex Assigned at Not on file Legal Sex Female 9:38 AM COMMUNICATIONS EQUIPMENT SUPERVISOR Gender Identity Not on file Sexual Orientation Not on file Last Filed Vital Signs Vital Sign Reading Time Taken Comments Blood Pressure 130/82 03/23/2020 7:11 PM COMMUNICATIONS EQUIPMENT SUPERVISOR Pulse 70 03/23/2020 7:11 PM COMMUNICATIONS EQUIPMENT SUPERVISOR Temperature 36.8 C (98.3 F) 03/23/2020 7:11 PM COMMUNICATIONS EQUIPMENT SUPERVISOR Respiratory Rate 20 03/23/2020 7:11 PM COMMUNICATIONS EQUIPMENT SUPERVISOR Oxygen Saturation 99% 03/23/2020 7:11 PM COMMUNICATIONS EQUIPMENT SUPERVISOR Inhaled Oxygen Concentration - - Weight 86.2 kg (190 lb) 12/04/2017 4:55 PM CDT Height 172.7 cm (5' 8) 02/24/2020 2:45 PM COMMUNICATIONS EQUIPMENT SUPERVISOR Body Mass Index 28.89 12/04/2017 4:55 PM CDT Plan of Treatment Health Maintenance Due Date Last Done Comments HIV SCREENING 2006 HEPATITIS C SCREENING 02/18/2009 DTAP/TDAP/TD VACCINES (1 - Tdap) 2010 HEPATITIS B VACCINE (1 of 3 - 19+ 3-dose series) 2010 PAP SMEAR 02/24/2012 HPV VACCINE (1 - 3-dose SCDM series) 2018 COVID-19 VACCINE ( - 2023-2 5 season) 2023 INFLUENZA VACCINE (#1) 2024 ZOSTER VACCINE (1 of 2) 2041 DEPRESSION SCREENING Completed 06/04/2024, 03/14/2024 HIB VACCINE Aged Out No longer eligi ble based on patient's age to complete this topic MENINGOCOCCAL (Group B) VACCINE SHARED DECISION-MAKING Aged Out No longer eligible based on patient's age to complete this topic MENINGOCOCCAL GROUPS A/C/Y/W VACCINE Aged Out No longer eligible b ased on patient's age to complete this topic PNEUMOCOCCAL VACCINE Aged Out No long er eligible based on patient's age to complete this topic Insurance [facility] Care Teams Purification Operator Helper Relationship Specialty Start Date End Date Justin Kohli MD [facility] [place] [address] PCP - General Family Medicine 05/15/17
--- OUTSIDE RECORDS SUMMARY | 2024-11-07 11:15 | XMS_ITS | Clinical Summary ---
Author Organization [facility] Address [address] [place] [address] Care Team Providers Care Office Analyst Name Role Phone Kathi Garcia MD Primary Care Provider [phone] Allergies Active Allergy Reactions Criticality Noted Date [...] drop 4 x day. Wash hands frequently. Encounters Date Type Department Care Team Description 11/06/2024 6:30 PM CDT Office Visit [facility] Care at [address] [phone] Cindy Weeks NP Diarrhea, unspecified type (Primary Dx); External hemorrhoid; POTS (postural orthostatic tachycardia syndrome) 10/30/2024 1:[address] [facility] Care [address] [place] [phone] Nohemi Hickey NP Acute pansinusitis, recurrence not specified (Primary Dx) 10/30/2024 Patient Self-Triage [facility] [address] [place] [phone] Mychart, Generic Provider 09/19/2024 11:[address] [facility] Care [address] [place] [phone] Nohemi Hickey, TERRY Acute cystitis without hematuria (Primary Dx) 09/19/2024 Patient Self-Triage [facility] [address] [place] [phone] Mychart, Generic Provider from Last 3 Months Social History Tobacco Use Types Packs/Day Years Used Date Smoking Tobacco: Never Assessed Comments Unknown Sex and Gender Information Value Date Recorded Sex Assigned at Not on file Legal Sex Female 1:30 PM CDT Gender Identity Not on file Sexual Orientation Not on file Obstetrics History Last Filed Vital Signs Vital Sign Reading [...] 11/06/2024 6:38 PM CDT Plan of Treatment Health Maintenance Due Date Last Done Comments Cervical Cancer Screening 1991 Depression Screening 1991 Hepatitis C Screening 1991 Varicella Vaccines (1 of 2 - 13+ 2-dose series) 02/24/2004 Hepatitis B Screening 2009 Regular Well Visit/Exam 18-64 2009 HPV Vaccines (1 - 3-dose SCD M series) 2018 Influenza Vaccine (#1) 2024 DTaP/Tdap/Td Vaccine (2 - Td or Tdap) 07/23/2025 07/24/2015 Pneumococcal vaccine <65 Aged Out No longer eligible based on patient's age to complete this topic Insurance Care Teams Office Analyst Relationship Specialty Start Date End Date Kathi Garcia MD [address] [place] [address] [address] [facility] [address] [place] [address] PCP - General Family Medicine 11/06/24
--- OUTSIDE RECORDS SUMMARY | 2024-11-07 11:15 | XMS_ITS | Clinical Summary ---
Author Organization [facility] Address [address] [place] [id number] Care Team Providers Care Rv Repairer Name Role Phone Justin Kohli MD Primary Care Provider [phone] Allergies No known active allergies Medications No known medications Active Problems No known active problems Social History Tobacco Use Types Packs/Day Years Used Date Smoking Tobacco: Never Smokeless Tobacco: Never Alcohol Use Standard Drinks/Week Comments No 0 (1 standard drink = 0.6 oz pur e alcohol) AUDIT-C Answer Date Recorded Frequency of Alcohol Consumption Never 12/15/2018 Average Number of Drinks Not on file 019 Frequency of Binge Drinking Not on file 12/05 Comments Unknown Sex and Gender Information Value Date Recorded Sex Assigned at Not on file Legal Sex Female 11:28 AM CDT Gender Identity Not on file Sexual Orientation Not on file Last Filed Vital Signs Vital Sign Reading Time Taken Comments Blood Pressure 124/84 12/15/2018 11:39 AM CDT Pulse 103 12/15/2018 11:39 AM CDT Temperature 36.8 C (98.2 F) 12/15/2018 11:39 AM CDT Respiratory Rate 20 12/15/2018 11:39 AM CDT Oxygen Saturation 96% 12/15/2018 11:39 AM CDT Inhaled Oxygen Concentration - - Weight 121.6 kg (268 lb) 12/15/2018 11:39 AM CDT Height 172.7 cm (5' 8) 12/15/2018 11:39 AM CDT Body Mass Index 40.75 12/15/2018 11:39 AM CDT Plan of Treatment Health Maintenance Due Date Last Done Comments Cervical Cancer Screening Pa p Smear (Age 30 to 64) Every 3 Years 1991 Annual Physical 1994 Hepatitis C 2009 DTaP, Tdap and Td Vaccines ( 1 - Tdap) 2010 Hepatitis B Vaccines (1 of 3 - 19+ 3-dose series) 2010 HPV Vaccines (1 - 3-dose SCD M series) 2018 Cervical Cancer Screening Pa p with HPV Testing (Age 30 to 64) Every 5 Years 2021 Cervical Cancer Screening with HPV 2021 COVID-19 Vaccine ( - 2023-2 5 season) 2023 Meningococcal B Vaccine Aged Out No l onger eligible based on patient's age to complete this topic Meningococcal Vaccine Aged Out No radha marvin eligible based on patient's age to complete this topic Pneumococcal Vaccine: Pediat rics (0 to 5 Years) and At-Risk Patients (6 to 49 Years) Aged Out No longer eligible b ased on patient's age to complete this topic RSV Immunizations Under 20 Months Aged Out No longer eligible based on patient's age to complete this topic Insurance Care Teams Rv Repairer Relationship Specialty Start Date End Date Justin Kohli MD [address] [place] [address] PCP - General FAMILY PRACTICE 12/15/18
== END 2024-11-07 10:47 | disposition home or self-care (01) ==
LOC: CHSIMG 10:47
PROVIDERS: PCP Family Medicine; Visit Provider Family Medicine
DX: N64.3 Galactorrhea not associated with childbirth (principal)
CPT/HCPCS: 76642; 77062; 77066; G0279